=== PATIENT | male | born 1995 | race Caucasian/White ===

== ENCOUNTER 2017-06-26 03:25 | Emergency (ER) | payer SELFPAY ==
[~2017-06-26] VITALS: Ht 182.9 cm; Wt 81.6 kg
[2017-06-26 03:32] VITALS: BP 112/62
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
--- NOTE | 2017-06-26 03:41 | NUR ---
PT CAITLYN DEL ROSARIO. TAKEN TO BED 11
--- NOTE | 2017-06-26 05:00 | NUR ---
Patient appears to be resting comfortably in bed. Vital Signs within normal limits. Respirations even and unlabored. VSS, SITTER AT BEDSISE
--- NOTE | 2017-06-26 06:00 | NUR ---
Patient appears to be resting comfortably in bed. Vital Signs within normal limits. Respirations even and unlabored. VSS, SITTER AT BEDSIDE
[2017-06-26 06:35] LABS: APPEARANCE,URINE CLEAR (CLEAR); BILIRUBIN,URINE NEGATIVE (NEGATIVE); BLOOD, URINE TRACE-I (NEGATIVE); COLOR,URINE YELLOW (YELLOW); LEUKOCYTE ESTERASE ,URINE NEGATIVE (NEGATIVE); NITRITE, URINE NEGATIVE (NEGATIVE); PH,URINE 5.5 (5.0-9.0); UGLUCOSE NEGATIVE (NEGATIVE)
[2017-06-26 06:39] LABS: RBC,URINE 0-5 (RARE) /HPF (0-5); WBC,URINE 0-5 (RARE) /HPF (0-5)
[2017-06-26 06:46] LABS: BARBITURATE, URINE NEG. ng/ml (NEG <=200); BENZODIAZEPINE, URINE NEG. ng/mL (NEG <=200); CANNABINOID, URINE NEG. ng/mL (NEG <=50); COCAINE, URINE NEG. ng/mL (NEG <=300); OPIATE, URINE NEG. ng/mL (NEG <=2000); PHENCYCLIDINE SCREEN,URINE NEG. ng/mL (NEG <=25)
--- NOTE | 2017-06-26 07:00 | NUR ---
Received report from Cathy CRUZ. Patient resting with eyes closed laying supine in [facility]. RR are even and unlabored. VSS. NAD. Suicidial precautions in placed. Sitter by bedside. Will continue to monitor.
--- NOTE | 2017-06-26 08:00 | NUR ---
Patient resting with eyes closed in [facility]. RR are even and unlabored. VSS. NAD. Suicidial precautions in placed. Sitter by bedside. Will continue to monitor.
[2017-06-26 08:31] LABS: BASOPHILS # (AUTO) 0.4 K/uL (0.00-0.22); BASOPHILS % (AUTO) 3.8 % (0.0-2.0); EOSINOPHILS # (AUTO) 0.1 K/uL (0-0.4); EOSINOPHILS % (AUTO) 1.1 % (0.0-4.0); HEMATOCRIT 44.1 % (36-52); HEMOGLOBIN 14.7 g/dL (12.0-18.0); LYMPHOCYTES # (AUTO) 1.1 K/uL (2.0-11.5); LYMPHOCYTES % (AUTO) 10.5 % (20.5-51.1); MEAN CORPUSCULAR HEMOGLOBIN 31 pg (27-31); MEAN CORPUSCULAR HGB CONC 33 g/dL (33-37); MEAN CORPUSCULAR VOLUME 93 fL (80-94); MONOCYTES # (AUTO) 0.9 K/uL (0.8-1.0); MONOCYTES % (AUTO) 9.3 % (1.7-9.3); NEUTROPHILS # (AUTO) 7.5 K/uL (1.8-7.7); NEUTROPHILS % (AUTO) 75.3 % (42.2-75.2); PLATELET COUNT (AUTO) 306 K/uL (140-450); RED BLOOD CELL COUNT(AUTO) 4.76 MIL/uL (4.20-6.10); RED CELL DISTRIBUTION WIDTH 11.4 % (11.6-13.7)
[2017-06-26 08:39] LABS: ANION GAP 13.8 (8-16); CHLORIDE 108 mmol/L (98-107); CREATININE 0.9 mg/dL (0.7-1.3); GFR ARICAN-AMERICAN 136 mL/min (>90); GLUCOSE 95 mg/dL (74-106); POTASSIUM 3.8 mmol/L (3.5-5.1); SODIUM SERUM 142 mmol/L (136-145); UREA NITROGEN, BLOOD 15 mg/dL (7-18)
[2017-06-26 08:45] LABS: ALBUMIN 3.7 g/dL (3.4-5.0); ASPARTATE AMINOTRANSFERASE 19 U/L (15-37); TOTAL BILIRUBIN 0.2 mg/dL (0.0-1.0)
[2017-06-26 08:47] LABS: ACETAMINOPHEN < 0.5 ug/ml (10-30); SALICYLATE < 2.8 mg/dL (2.8-20.0)
--- NOTE | 2017-06-26 09:00 | NUR ---
Patient resting with eyes closed in [facility]. RR are even and unlabored. VSS. NAD. Suicidial precautions in placed. Sitter by bedside. Will continue to monitor.
--- NOTE | 2017-06-26 10:00 | NUR ---
Patient resting with eyes closed in [facility]. RR are even and unlabored. VSS. NAD. Suicidial precautions in placed. Sitter by bedside. Will continue to monitor.
[2017-06-26] MEDS: BACITRACIN OINT 500 UNITS/GM PKT TP ONE (10:46)
--- NOTE | 2017-06-26 11:00 | NUR ---
Patient resting with eyes closed in [facility]. RR are even and unlabored. VSS. NAD. Suicidial precautions in placed. Sitter by bedside. Will continue to monitor.
--- NOTE | 2017-06-26 11:20 | NUR ---
X-Ray at bedside.
--- NOTE | 2017-06-26 11:33 | NUR ---
PT MOVED TO OVERFLOW W/C AT THIS TIME. PT IS CALM AND COOPERATIVE.
--- NOTE | 2017-06-26 12:49 | NUR ---
PT SITTING ON A WHEEL CHAIR;NO ACUTE DISTRESS NOTED;SAFETY MEASURES DONE;
--- NOTE | 2017-06-26 13:42 | NUR ---
PT EATING HIS LUNCH AT THIS TIME;
--- NOTE | 2017-06-26 15:45 | NUR ---
PSYCHIATRIST HONEY EVALUATING PT.
--- NOTE | 2017-06-26 16:22 | NUR ---
DR. MÉNDEZ PSYCHATRIST CLEARED THE PATIENT OFF THE 5150 HOLD AND RELEASING HIM.
--- NOTE | 2017-06-26 16:40 | NUR ---
Patient discharged with v/s stable. Written and verbal after care instructions given and explained. Patient verbalized understanding. Ambulatory with steady gait. All questions addressed prior to discharge. Advised to follow up with PMD.
[2017-06-26 16:41] VITALS: BP 130/55
== END 2017-06-26 16:40 | disposition home or self-care (01) ==
LOC: MED 03:25
DX: R45.851 Suicidal ideations (principal); M79.641 Pain in right hand
CPT/HCPCS: 36415; 73130; 80053; 80305; 81001; 85025; 99285; G0480; G0482

== ENCOUNTER 2019-02-14 16:59 | Emergency (ER) | payer SELFPAY ==
[~2019-02-14] VITALS: Ht 188 cm; Wt 92.7 kg
[2019-02-14 17:07] VITALS: BP 138/104
--- NOTE | 2019-02-14 17:15 | NUR ---
PT AMBULATED TO ER BED 4
--- NOTE | 2019-02-14 17:18 | NUR ---
PT PRESENTS TO ED WITH C/O ACCIDENTALLY DRINKING CLEANING LIQUID; PT UNABLE TO RECALL THE NAME OF THE PRODUCT. REPORTS BURNING SENSATION TO ENTIRE BODY. DENIES ANY PREVIOUS MEDICAL HX OR ALLERGIES. PT ALERT AND ORIENTED TO PERSON, PLACE, TIME AND EVENT. PT DENIES ANY NAUSEA AT THIS TIME; PT NOTED IN NO APPARENT DISTRESS. NO SOB, RESP EVEN AND UNLABORED. NO OTHER COMPLAINS AT THIS TIME. ERMD TO EVALUATE PT.
--- NOTE | 2019-02-14 17:21 | NUR ---
Patient being evaluated by physician at bedside.
--- NOTE | 2019-02-14 17:35 | NUR ---
Contacted poison control and spoke with John Sebastian. He was made aware that patient had no obvious rivas or blisters at this time. Pharmacist states that we can get GI involved if we feel it's necessary but at this time it is all medical management. Dr. Long made aware.
[2019-02-14] MEDS ORDERED: ALUMINUM HYD/MAG/SIMETHICONE 30 ML UDC PO ONE (17:40)
[2019-02-14 18:05] VITALS: BP 144/83
--- NOTE | 2019-02-14 18:05 | NUR ---
Patient discharged with v/s stable. Written and verbal after care instructions given and explained. Patient alert, oriented and verbalized understanding of instructions. Ambulatory with steady gait. All questions addressed prior to discharge. ID band removed. Patient advised to follow up with PMD. Rx of MYLANTA given. Patient educated on indication of medication including possible reaction and side effects. Opportunity to ask questions provided and answered.
--- NOTE | 2019-02-14 18:06 | NUR ---
POISON CONTROL PHONE NUMBER PROVIDED IN DISCHARGE PAPERWORK.
== END 2019-02-14 18:05 | disposition home or self-care (01) ==
LOC: MED 16:59
DX: T65.91XA Toxic effect of unspecified substance, accidental (unintentional), initial encounter (principal); R07.0 Pain in throat; Y92.89 Other specified places as the place of occurrence of the external cause
CPT/HCPCS: 99283

== ENCOUNTER 2020-01-21 18:25 | Emergency (ER) | payer SELFPAY ==
[~2020-01-21] VITALS: Ht 188 cm; Wt 93.0 kg
[2020-01-21 18:31] VITALS: BP_SYST 162; BP_DIAS 103; BP_DIAS 99
[2020-01-21 18:36] VITALS: BP 162/99
--- NOTE | 2020-01-21 18:37 | NUR ---
PT BIB [facility] C/O PRE-BOOK NEEDS MEDICAL CLEARANCE FOR HR 125. PT DENIES N/V/D; SKIN IS INTACT, PINK/WARM/DRY; AAOX4, PERRL, WITH EVEN AND STEADY GAIT; LUNGS CLEAR BL, BREATHING UNLABORED; HR EVEN AND REGULAR, BL PERIPHERAL PULSES PRESENT; BS ACTIVE X4, NO TENDERNESS TO PALPATION. PT DENIES ANY FEVER, CP, SOB, OR COUGH AT THIS TIME; PT STATES 0/10 PAIN AT THIS TIME; VSS; PATIENT POSITIONED FOR COMFORT; HOB ELEVATED; BEDRAILS UP X2; BED DOWN.
--- NOTE | 2020-01-21 19:17 | NUR ---
Note jose in ED - 01/21/20 at 1918 by [facility] Patient discharged with v/s stable. Written and verbal after care instructions given and explained. Patient verbalized understanding. Ambulatory with steady gait. All questions addressed prior to discharge. Advised to follow up with PMD.
--- NOTE | 2020-01-21 19:18 | NUR ---
PT DISCHARGED INTO [facility] CUSTODY OFFICE [id number]. VSS. EDUCATION GIVEN. OPPORTUNITY TO ASK QUESTIONS GIVEN.
== END 2020-01-21 19:18 ==
LOC: MED 18:25
DX: R00.0 Tachycardia, unspecified (principal); F10.129 Alcohol abuse with intoxication, unspecified
CPT/HCPCS: 99283